=== PATIENT | female | born 1995 | race Caucasian/White ===

== ENCOUNTER 2022-03-18 10:50 | Inpatient (IN) | payer BC ==
[2022-03-18] MEDS ORDERED: Nalbuphine HCl 10 MG/ 1ML Amp IVPUSH PRN (16:11)
[2022-03-18] MEDS ORDERED: Ondansetron 4 MG/2 ML SDV IVPUSH PRN (16:11)
[2022-03-18] MEDS ORDERED: Sodium Chloride 0.9% 10 ML Syringe FLUSH PRN (16:11)
[2022-03-18] MEDS ORDERED: Oxytocin/Lactated Ringers 10 UNIT/1,000 ML BAG IV SCH ×2 (16:15)
[2022-03-18] MEDS ORDERED: Misoprostol 25 MCG (1/4 of 100 MCG) Tab VAG ONE (17:00)
[2022-03-18] MEDS ORDERED: Labetalol 100 MG/20 ML MDV IVPUSH ONE ×2 (21:44→22:30)
[2022-03-18] MEDS: Sodium Chloride 0.9% 10 ML Syringe FLUSH SCH (22:02)
[2022-03-18] MEDS ORDERED: Calcium Gluconate 10% 1 GM/10 ML SDV IV PRN (22:30)
[2022-03-18] MEDS ORDERED: Magnesium Sulfate/Water 40 GM/1,000 ML BAG IV SCH (22:30)
[2022-03-18] MEDS ORDERED: Magnesium Sulfate/Water 4 GM in Premix Bag 1 BAG IV ONE (22:30)
[2022-03-18] MEDS ORDERED: Magnesium Sulfate/Water 2 GM in Premix Bag 1 BAG IV ONE (22:30)
[2022-03-18] MEDS: Lactated Ringers 1,000 ML IV SCH (23:12)
[2022-03-18] MEDS: Misoprostol 25 MCG (1/4 of 100 MCG) Tab VAG SCH (23:41)
[2022-03-19] MEDS: Misoprostol 25 MCG (1/4 of 100 MCG) Tab VAG SCH (04:11)
[2022-03-19] MEDS: Sodium Chloride 0.9% 10 ML Syringe FLUSH SCH (09:22)
[2022-03-19] MEDS ORDERED: Azithromycin 500 MG in Sodium Chloride 0.9% 250 ML IV STA (09:54)
[2022-03-19] MEDS ORDERED: Bupivacaine 0.5% 30 ML SDV ONE (09:59)
[2022-03-19] MEDS ORDERED: Morphine PF 10 MG/10 ML SDV ONE (10:02)
[2022-03-19] MEDS: Lactated Ringers 1,000 ML IV SCH (10:16)
[2022-03-19] MEDS ORDERED: ceFAZolin 2 GM Vial ONE (10:18)
[2022-03-19] MEDS ORDERED: Oxytocin 10 Units/1 ML SDV ONE (10:19)
[2022-03-19] MEDS ORDERED: Lactated Ringers 1,000 ML ONE (10:21)
[2022-03-19] MEDS ORDERED: Ondansetron 4 MG/2 ML SDV ONE (10:21)
[2022-03-19] MEDS ORDERED: Ketorolac 30 MG/ML SDV ONE (10:21)
[2022-03-19] MEDS ORDERED: Phenylephrine HCl In 0.9% NaCl 1 MG/10 ML Vial ONE (10:35)
[2022-03-19] MEDS ORDERED: Misoprostol 200 MCG Tab ONE ×2 (10:55→10:57)
[2022-03-19] MEDS ORDERED: Meperidine 50 MG/ML Vial IVPUSH PRN (11:29)
[2022-03-19] MEDS ORDERED: diphenhydrAMINE 50 MG/ML SDV IVPUSH PRN ×2 (11:29→12:07)
[2022-03-19] MEDS ORDERED: fentaNYL 100 MCG/2 ML SDV IVPUSH PRN (11:29)
[2022-03-19] MEDS ORDERED: Ondansetron 4 MG/2 ML SDV IVPUSH PRN (11:29)
[2022-03-19] MEDS ORDERED: Dextrose 5%-Lactated Ringers 1,000 ML IV SCH (12:07)
[2022-03-19] MEDS ORDERED: Acetaminophen/oxyCODONE 325-5 MG Tab PO PRN ×2 (12:07)
[2022-03-19] MEDS ORDERED: Naloxone 0.4 MG/ML SDV IVPUSH PRN (12:07)
[2022-03-19] MEDS ORDERED: ePHEDrine 50 MG/ML SDV IVPUSH PRN (12:07)
[2022-03-19] MEDS ORDERED: Ibuprofen 600 MG Tab PO PRN (17:00)
[2022-03-20] MEDS ORDERED: Measles, Mumps & Rubella Vaccine 0.5 ML SDV SUBCUT ONE (17:11)
== END 2022-03-20 17:45 | disposition home or self-care (01) | DRG 540 ==
LOC: JD.OB 10:50 → OBSVTOIN 03-19 10:50 → JD.OB 03-19 10:51
PROVIDERS: ADMIT Obstetrics & Gynecology; ATTEND Obstetrics & Gynecology
PROC: 10D00Z1 Extraction of Products of Conception, Low, Open Approach (ICD-10-PCS; principal; 2022-03-19)
DX: O14.94 Unspecified pre-eclampsia, complicating childbirth (principal); Z3A.39 39 weeks gestation of pregnancy; Z37.0 Single live birth; O76 Abnormality in fetal heart rate and rhythm complicating labor and delivery; O99.52 Diseases of the respiratory system complicating childbirth; J45.909 Unspecified asthma, uncomplicated
CPT/HCPCS: 36415; 59025; 82565; 82570; 83615; 84156; 84450; 84460; 84520; 84550; 85025; 86592; 86850; 86900; 86901; 90471; 90707; A9270-GY; J0456; J0690; J1885; J2274; J2405; J2590; J3475; J3490; J7050; J7120; J7121

== ENCOUNTER 2024-09-14 05:04 | Inpatient (IN) | payer BC ==
[~2024-09-14 05:04] MED LIST: Citric Acid/Sodium Citrate Solution 30 ML Cup PO ONE; Metoclopramide 10 MG/2 ML SDV IVPUSH ONE; Sodium Chloride 0.9% 10 ML Syringe FLUSH PRN
[2024-09-14 05:36] LABS: HEMATOCRIT 33.4 % (37.0-47.0); MEAN CORPUSCULAR HEMOGLOBIN 28.9 pg (28.0-32.0); MEAN CORPUSCULAR HGB CONC 32.9 g/dl (32.0-36.0); MEAN CORPUSCULAR VOLUME 87.7 fl (83.0-99.0); MEAN PLATELET VOLUME 10.6 fl (9.4-12.3); PLATELET COUNT,PLT 273 K/mm3 (150-400); RED BLOOD CELL COUNT 3.81 M/mm3 (4.10-5.30); WHITE BLOOD CELL COUNT,WBC 12.59 K/mm3 (3.9-11.3)
[2024-09-14] MEDS ORDERED: Morphine PF 10 MG/10 ML SDV ONE (06:42)
[2024-09-14] MEDS ORDERED: Phenylephrine 1% 10 MG/ML SDV ONE (06:43)
[2024-09-14] MEDS ORDERED: dexmedeTOMIDine HCl 200 MCG/2 ML SDV ONE (06:43)
[2024-09-14] MEDS ORDERED: Ondansetron 4 MG/2 ML SDV ONE (06:43)
[2024-09-14] MEDS ORDERED: Ropivacaine 0.5% 5 MG/ML 30 ML SDV ONE (06:46)
[2024-09-14] MEDS ORDERED: Sodium Chloride 0.9% 50 ML SDV ONE (06:47)
[2024-09-14] MEDS ORDERED: Oxytocin/0.9 % Sodium Chloride 30 UNIT/500 ML BAG IV SCH (07:00)
[2024-09-14] MEDS: Citric Acid/Sodium Citrate Solution 30 ML Cup PO ONE (07:09)
[2024-09-14] MEDS: Lactated Ringers 1,000 ML IV SCH (07:09)
[2024-09-14] MEDS: Metoclopramide 10 MG/2 ML SDV IVPUSH ONE (07:09)
[2024-09-14] MEDS ORDERED: ePHEDrine 50 MG/ML SDV ONE (07:32)
[2024-09-14] MEDS ORDERED: ceFAZolin 2 GM Vial ONE (07:33)
[2024-09-14] MEDS: Bupivacaine 0.5% 30 ML SDV ONE (07:46)
[2024-09-14] MEDS ORDERED: Dexamethasone 4 MG/ML SDV ONE (07:48)
[2024-09-14] MEDS ORDERED: Lactated Ringers 1,000 ML ONE (07:52)
[2024-09-14] MEDS ORDERED: Ketorolac 30 MG/ML SDV ONE (08:19)
[2024-09-14] MEDS ORDERED: ePHEDrine 50 MG/ML SDV IVPUSH PRN (09:47)
[2024-09-14] MEDS ORDERED: Acetaminophen/oxyCODONE 325-5 MG Tab PO PRN (09:47)
[2024-09-14] MEDS ORDERED: Naloxone 0.4 MG/ML SDV IVPUSH PRN (09:47)
[2024-09-14] MEDS ORDERED: diphenhydrAMINE 50 MG/ML SDV IVPUSH PRN ×2 (09:47→10:48)
[2024-09-14] MEDS ORDERED: Acetaminophen 325 MG Tab PO PRN (09:47)
[2024-09-14] MEDS ORDERED: Ondansetron 4 MG/2 ML SDV IVPUSH PRN (10:48)
[2024-09-14] MEDS ORDERED: fentaNYL 100 MCG/2 ML SDV IVPUSH PRN (10:48)
[2024-09-14] MEDS ORDERED: Meperidine 50 MG/ML Vial IVPUSH PRN (10:48)
[2024-09-14] MEDS: Dextrose 5%-Lactated Ringers 1,000 ML IV SCH (11:08)
[2024-09-14] MEDS: Ketorolac 30 MG/ML SDV IVPUSH SCH (14:29)
[2024-09-14] MEDS: Acetaminophen/oxyCODONE 325-5 MG Tab PO PRN (16:23)
[2024-09-14] MEDS: Docusate Sodium 100 MG Cap PO PRN (20:41)
[2024-09-14] MEDS: Simethicone 80 MG Tab.Chew PO PRN (20:42)
[2024-09-15] MEDS: Sodium Chloride 0.9% 10 ML Syringe FLUSH SCH (00:30)
[2024-09-15] MEDS: ceFAZolin 2 GM Vial IVPUSH ONE (00:30)
[2024-09-15 05:31] LABS: BASOPHILS PERCENT AUTO 0.1 % (0.0-1.0); EOSINOPHILS ABSOLUTE AUTO 0.1 K/mm3 (0.0-0.4); EOSINOPHILS PERCENT AUTO 0.6 % (0.0-6.0); HEMATOCRIT 29.6 % (37.0-47.0); HEMOGLOBIN 9.8 gm/dl (12.0-16.0); IMMATURE GRAN PERCENT AUTO 0.6 % (0.0-0.4); LYMPHOCYTES PERCENT AUTO 19.1 % (24.0-44.0); MEAN CORPUSCULAR HEMOGLOBIN 29.3 pg (28.0-32.0); MEAN CORPUSCULAR HGB CONC 33.1 g/dl (32.0-36.0); MEAN CORPUSCULAR VOLUME 88.6 fl (83.0-99.0); MEAN PLATELET VOLUME 10.8 fl (9.4-12.3); MONOCYTES ABSOLUTE AUTO 1.2 K/mm3 (0.0-0.8); MONOCYTES PERCENT AUTO 7.9 % (0.0-8.0); NEUTROPHILS ABSOLUTE AUTO 11.2 K/mm3 (1.8-7.7); NEUTROPHILS PERCENT AUTO 71.7 % (41.0-71.0); PLATELET COUNT,PLT 241 K/mm3 (150-400); RED BLOOD CELL COUNT 3.34 M/mm3 (4.10-5.30); WHITE BLOOD CELL COUNT,WBC 15.64 K/mm3 (3.9-11.3)
[2024-09-15] MEDS: Ibuprofen 600 MG Tab PO SCH (08:18)
== END 2024-09-16 10:29 | disposition home or self-care (01) | DRG 540 ==
LOC: JD.OB 05:04
PROVIDERS: ADMIT Obstetrics & Gynecology; ATTEND Obstetrics & Gynecology
PROC: 10D00Z1 Extraction of Products of Conception, Low, Open Approach (ICD-10-PCS; principal; 2024-09-14 07:30)
DX: O34.211 Maternal care for low transverse scar from previous cesarean delivery (principal); Z37.0 Single live birth; Z3A.36 36 weeks gestation of pregnancy
CPT/HCPCS: 01961; 36415; 59025; 64488; 85025; 85027; 86592; 86850; 86900; 86901; 94762; A9270-GY; J0665; J0690; J1100; J1885; J2274; J2371; J2405; J2765; J2795; J3490; J7120; J7121; J7999

== ENCOUNTER 2025-03-09 21:03 | Emergency (ER) | payer BC ==
[2025-03-09 21:41] LABS: BASOPHILS ABSOLUTE AUTO 0.1 K/mm3 (0.0-0.2); BASOPHILS PERCENT AUTO 0.7 % (0.0-1.0); EOSINOPHILS ABSOLUTE AUTO 0.9 K/mm3 (0.0-0.4); EOSINOPHILS PERCENT AUTO 10.3 % (0.0-6.0); IMMATURE GRAN ABSOLUTE AUTO 0.03 K/mm3 (0.00-0.05); IMMATURE GRAN PERCENT AUTO 0.4 % (0.0-0.4); LYMPHOCYTES ABSOLUTE AUTO 2.6 K/mm3 (1.0-4.8); LYMPHOCYTES PERCENT AUTO 30.8 % (24.0-44.0); MEAN PLATELET VOLUME 10.6 fl (9.4-12.3); MONOCYTES ABSOLUTE AUTO 0.9 K/mm3 (0.0-0.8); MONOCYTES PERCENT AUTO 9.9 % (0.0-8.0); NEUTROPHILS ABSOLUTE AUTO 4.1 K/mm3 (1.8-7.7); NEUTROPHILS PERCENT AUTO 47.9 % (41.0-71.0); NRBC ABSOLUTE 0.00 (0.00-0.02); NRBC PERCENT 0.0 % (0.0-0.2); PLATELET COUNT,PLT 288 K/mm3 (150-400); RED BLOOD CELL COUNT 4.20 M/mm3 (4.10-5.30); WHITE BLOOD CELL COUNT,WBC 8.56 K/mm3 (3.9-11.3)
== END 2025-03-09 23:00 | disposition home or self-care (01) ==
LOC: JD.ED 21:03
DX: O03.9 Complete or unspecified spontaneous abortion without complication (principal); Z79.899 Other long term (current) drug therapy
CPT/HCPCS: 36415; 76817; 76817-26; 84702; 85025; 86900; 86901; 99284

== ENCOUNTER 2025-06-05 19:38 | Emergency (ER) | payer BC ==
[2025-06-05 20:21] LABS: APPEARANCE,URINE CLEAR (Clear); GLUCOSE,URINE NEGATIVE (Negative); OCCULT BLOOD,URINE 2+ (Negative)
[2025-06-05 20:26] LABS: BASOPHILS ABSOLUTE AUTO 0.1 K/mm3 (0.0-0.2); BASOPHILS PERCENT AUTO 0.6 % (0.0-1.0); EOSINOPHILS ABSOLUTE AUTO 0.2 K/mm3 (0.0-0.4); EOSINOPHILS PERCENT AUTO 2.7 % (0.0-6.0); IMMATURE GRAN ABSOLUTE AUTO 0.04 K/mm3 (0.00-0.05); IMMATURE GRAN PERCENT AUTO 0.5 % (0.0-0.4); LYMPHOCYTES ABSOLUTE AUTO 1.4 K/mm3 (1.0-4.8); LYMPHOCYTES PERCENT AUTO 15.5 % (24.0-44.0); MEAN PLATELET VOLUME 10.9 fl (9.4-12.3); MONOCYTES ABSOLUTE AUTO 0.5 K/mm3 (0.0-0.8); MONOCYTES PERCENT AUTO 6.0 % (0.0-8.0); NEUTROPHILS ABSOLUTE AUTO 6.5 K/mm3 (1.8-7.7); NEUTROPHILS PERCENT AUTO 74.7 % (41.0-71.0); NRBC ABSOLUTE 0.00 (0.00-0.02); NRBC PERCENT 0.0 % (0.0-0.2); PLATELET COUNT,PLT 262 K/mm3 (150-400); RED BLOOD CELL COUNT 4.33 M/mm3 (4.10-5.30); WHITE BLOOD CELL COUNT,WBC 8.73 K/mm3 (3.9-11.3)
[2025-06-05 20:29] LABS: EPITHELIAL CELLS,URINE 0-5 /hpf (0-5)
[2025-06-05 20:48] LABS: A/G RATIO 0.8 (1-2); ALANINE AMINOTRANSFERASE,ALT 33.0 U/L (14-59); ASPARTATE AMNIOTRANSFERASE,AST 26.0 U/L (15-37); BILIRUBIN TOTAL 0.6 mg/dL (0.2-1.0); BLOOD UREA NITROGEN,BUN 4.0 mg/dL (7-18); CARBON DIOXIDE,CO2 24.0 mEq/L (21-32); CHLORIDE,CL 102.0 mEq/L (98-107); CREATININE 0.5 mg/dL (0.55-1.02); EST CRCL DRUG DOSING (CG) 145.94 mL/min; ESTIMATED GFR 132.0 mL/min (>60); GLUCOSE RANDOM 106.0 mg/dL (70-99); POTASSIUM,K 3.0 mEq/L (3.5-5.1); PROTEIN TOTAL,TP 7.4 g/dl (6.4-8.2); SODIUM,NA 136.0 mEq/L (136-145)
[2025-06-05 22:51] LABS: C. TRACHOMATIS BY PCR NOT DETECTED; N. GONORRHOEAE BY PCR NOT DETECTED
[2025-06-05] MEDS: Potassium Chloride 20 MEQ Tab.ER PO ONE (23:48)
== END 2025-06-06 | disposition home or self-care (01) ==
LOC: JD.ED 19:38
DX: O20.8 Other hemorrhage in early pregnancy (principal); Z79.899 Other long term (current) drug therapy; Z86.16 Personal history of COVID-19; Z3A.12 12 weeks gestation of pregnancy
CPT/HCPCS: 36415; 76817; 76817-26; 80053; 81001; 81515; 84702; 85025; 87491; 87591; 99283; 99284; A9270-GY

== ENCOUNTER 2025-06-09 11:52 | Day surgery (SDC) | payer BC ==
[~2025-06-09 11:52] MED LIST changes: -Citric Acid/Sodium Citrate Solution 30 ML Cup PO ONE; +Dexamethasone 4 MG/ML 5 ML MDV ONE; +Ketamine HCL/NACL, ISO-OSM 50 MG/5 ML Syringe ONE; -Metoclopramide 10 MG/2 ML SDV IVPUSH ONE; +Ondansetron 4 MG/2 ML SDV ONE; +Propofol 200 MG/20 ML SDV ONE; -Sodium Chloride 0.9% 10 ML Syringe FLUSH PRN; +fentaNYL 100 MCG/2 ML SDV ONE; +propofoL 500 MG/50 ML 50 ML ONE
[2025-06-09] MEDS: Lactated Ringers 1,000 ML IV SCH (12:10)
[2025-06-09] MEDS ORDERED: Sodium Chloride 0.9% 10 ML Syringe FLUSH PRN (13:24)
[2025-06-09] MEDS ORDERED: Lactated Ringers 1,000 ML IV SCH (13:30)
[2025-06-09] MEDS ORDERED: Sodium Chloride 0.9% 10 ML Syringe FLUSH SCH (21:00)
== END 2025-06-09 14:40 | disposition home or self-care (01) ==
LOC: JD.SDS 11:52
PROVIDERS: ATTEND Obstetrics & Gynecology
DX: O03.4 Incomplete spontaneous abortion without complication (principal)
CPT/HCPCS: 36415; 59812; 86850; 86900; 86901; A9270; J1100; J2210; J2405; J2704; J3010; J7120; J7620; 01965; J3490